=== PATIENT | female | born 1960 | race Caucasian/White ===

== ENCOUNTER 2019-04-23 06:54 | Inpatient (IN) ==
--- NOTE | 2019-03-24 19:43 | PAT Medication Instructions ---
Medication Instructions Date of Service March 24, 2019 Home Medications amitriptyline 50 mg PO HS ascorbic acid (vitamin C) [Vitamin C] 1 g PO DAILY aspirin 81 mg PO HS calcium carbonate-vitamin D3 [Calcium 600 + D(3)] 1 cap PO BID cholecalciferol (vitamin D3) [Vitamin D3] 5,000 unit PO DAILY levothyroxine 50 mcg PO QAM levothyroxine 200 mcg PO QAM multivitamin 1 tab PO DAILY valsartan 320 mg PO QAM ASK your prescriber and surgeon aspirin 81 mg PO HS DO NOT take the morning of surgery ascorbic acid (vitamin C) [Vitamin C] 1 g PO DAILY calcium carbonate-vitamin D3 [Calcium 600 + D(3)] 1 cap PO BID cholecalciferol (vitamin D3) [Vitamin D3] 5,000 unit PO DAILY multivitamin 1 tab PO DAILY valsartan 320 mg PO QAM Take morning of surgery With a small sip of water, OTHERWISE NOTHING TO EAT OR DRINK AFTER MIDNIGHT: levothyroxine 50 mcg PO QAM levothyroxine 200 mcg PO QAM Take evening before surgery amitriptyline 50 mg PO HS calcium carbonate-vitamin D3 [Calcium 600 + D(3)] 1 cap PO BID Other Notes If you have any questions please call us at [phone] or [phone] or [phone] or [phone]
--- NOTE | 2019-03-25 13:29 | Anesthesiology Consultation ---
Date of Service March 25, 2019 Assessment & Plan (1) Encounter for pre-operative examination: - Awaiting review preop testing (labs, EKG, CXR). - Awaiting surgeon-ordered PCP clearance scheduled 04/03 (Dr. Minal Mora). Chart Review Chart Review: Patient seen in Pre Admission Testing Teaching & Discussion Pre-Anesthesia Teaching/Discussion Notes: Instructed NPO after midnight before surgery,except medications with 15 cc of water. Medication instructions provided according to the PAT guidelines. History Surgery Operation Date: 04/23/19 11:40 Proposed Procedures p Left Total Knee Arthroplasty Revision, Tibia Possible Femur - Ulises Pena, Height/Weight Height: 5 ft 6 in Weight: 95.5 kg Allergies Allergy/AdvReac Type Severity Reaction Status Date / Time bacitracin Allergy Intermediate made skin Verified 03/25/19 13:27 [From Neosporin "raw" ([id number])] neomycin Allergy Intermediate made skin Verified 03/25/19 13:27 [From Neosporin "raw" ([id number])] polymyxin B Allergy Intermediate made skin Verified 03/25/19 13:27 [From Neosporin "raw" ([id number])] tramadol Allergy Mild pruritus Verified 03/25/19 13:27 Medications Home Medications Medication Instructions Recorded Confirmed Last Taken amitriptyline 50 mg PO HS 03/19/19 03/19/19 Unknown ascorbic acid (vitamin C) [Vitamin 1 g PO DAILY 03/19/19 03/19/19 Unknown C] aspirin 81 mg PO HS 03/19/19 03/19/19 Unknown calcium carbonate-vitamin D3 1 cap PO BID 03/19/19 03/19/19 Unknown [Calcium 600 + D(3)] cholecalciferol (vitamin D3) 5,000 unit PO DAILY 03/19/19 03/19/19 Unknown [Vitamin D3] levothyroxine 50 mcg PO QAM 03/19/19 03/19/19 Unknown levothyroxine 200 mcg PO QAM 03/19/19 03/19/19 Unknown multivitamin 1 tab PO DAILY 03/19/19 03/19/19 Unknown valsartan 320 mg PO QAM 03/19/19 03/19/19 Unknown Past Medical History Medical History Anxiety Deep vein thrombosis RLE (20+ years ago)= no definitive etiology; ?lovenox injections x 1 weeks- no issues since Hx of migraines Hypertension Hypothyroidism MVP (mitral valve prolapse) Possible- patient states she was remotely told this but denies hx of ECHO's/no murmur noted at PAT visit 03/25 Obesity Osteoarthritis Varicose veins of both lower extremities Exercise / Class Metabolic Activity II 4-5 Yardwork/Stairs/Walk up hill Past Family History Family History Mother Family history of diabetes mellitus Past Surgical History Surgical History Fusion of spine LUMBAR H/O total hysterectomy History of bilateral tubal ligation History of cholecystectomy History of colonoscopy History of dilatation and curettage "SEVERAL" History of surgery UTERINE ABLATION History of total knee replacement RIGHT/LEFT; Right TKA: 05/19/16: SAB x 2 attempts at L3-L4 + PNB at [facility] Hx of gastric bypass 2004 [place] teeth removed Past Anesthesia History No Hx of Anesthesia Complications and No Family Hx of Anesthesia Complications History of PONV No Hx of PONV and No Hx of Motion Sickness Social History Smoking Status: Never smoker Do You Dip or Chew Tobacco: No Hx Alcohol Use: Yes Alcohol type: wine alcohol intake frequency: holidays/special occasions only Hx Substance Use: No substance use type: does not use Review of Systems Patient denies chest pain, shortness of breath, dyspnea on exertion, reflux, cough, wheezing, palpitations. Physical Exam Vital Signs VITALS BP 128/83 P 69 TEMP 98.3 SP02 94%RA RESP 16 PHYSICAL Full neck and c-spine range of motion. Full TMJ range of motion. TMD 3 finger breaths Mallampati Score 2 Dentition: intact, 2 caps upper front Lungs: clear throughout to auscultation Cardiac: regular rate and rhythm, no murmurs noted Spine: normal Carotid arteries: negative bruit Extremities: no edema Testing Stress Test Date: 05/09/16 Type: nuclear No evidence of myocardial ischemia or infarction. LVEF 61%.
--- NOTE | 2019-03-25 14:25 | XRay Report ---
XR chest Pre-admission PA/Lat CLINICAL HISTORY: Preoperative chest COMPARISON STUDY: 04/21/2016 FINDINGS: The cardiac and mediastinal contours are normal. There is no evidence of focal pulmonary co nsolidation. There is no evidence of failure. No pleural effusions are visualized.[ IMPRESSION: No active disease in the chest. Electronically signed by: Javi Kirkland M.D. 03/25/2019 2:23 PM
[2019-03-25 15:09] LABS: Estimated Average Glucose 105 mg/dl; Hemoglobin A1C 5.3 % (4.5-5.6)
[2019-03-25 15:12] LABS: Appearance Urine Clear (Clear); Bilirubin Urine Negative (Negative); Blood Urine Negative (Negative); Color Urine Yellow; Glucose Urine UA Negative (Negative); Ketones Urine Negative (Negative); Leukocyte Esterase Urine Negative (Negative); Nitrite Urine Negative (Negative); Protein Urine Negative (Negative); Specific Gravity Urine 1.017 (1.000-1.030); Urobilinogen Urine Negative (Negative)
[2019-03-25 15:14] LABS: Basophils # (auto) 0.01 K/uL (0-0.2); Basophils % (auto) 0.2 %; Eosinophils # (auto) 0.09 K/uL (0-0.5); Eosinophils % (auto) 1.6 %; Hematocrit (blood only) 36.5 % (37-47); Hemoglobin 12.4 g/dL (12.0-16.0); Immature Granulocytes # (auto) 0.02 K/uL (0.00-0.02); Immature Granulocytes % (auto) 0.3 %; Lymphocytes # (auto) 0.95 K/uL (1.2-3.4); Lymphocytes % (auto) 16.5 %; Mean Corpuscular Hemoglobin 32.3 pg (25-34); Mean Corpuscular Volume 95.1 fL (80-100); Mean Platelet Volume 10.6 fL (7.4-10.4); Monocytes # (auto) 0.45 K/uL (0.11-0.59); Monocytes % (auto) 7.8 %; Neutrophils # (auto) 4.24 K/uL (1.4-6.5); Neutrophils % (auto) 73.6 %; Platelet Count 211 K/uL (130-400); RDW Coefficient of Variation 12.9 % (11.5-14.5); Red Blood Count 3.84 M/uL (4.2-5.4); White Blood Count 5.76 K/uL (4.8-10.8)
[2019-03-25 15:19] LABS: INR 0.9 (0.9-1.1); Partial Thromboplastin Ratio 0.9; Partial Thromboplastin Time 24.6 Seconds (21.0-31.0); Prothrombin Time 9.4 Seconds (9.0-12.0)
[2019-03-25 15:22] LABS: Albumin Level 3.1 gm/dl (3.4-5.0); BUN Creatinine Ratio 20.6 (10-20); Calcium 8.3 mg/dl (8.5-10.1); Creatinine Clr Calc Pharmacy 106.6 ml/min; Est GFR (African American) 112.3; Est GFR (Non-African American) 96.9; Potassium 3.8 mmol/L (3.5-5.1)
--- NOTE | 2019-04-20 22:07 | History & Physical Report ---
Date of Service April 20, 2019 Assessment & Plan (1) Failed total left knee replacement: I have indicated the patient for revision left total knee replacement. The risks, benefits and complications of surgery were explained to the patient which include but not limited to infection, acute blood loss, DVT/PE, injury to nerves, vessels, bone, soft tissue, arthrofibrosis, chronic pain, failure of the prosthesis, knee dislocation, leg length discrepancy, need for additional surgery, cardiac and pulmonary events and . The patient wished to proceed with surgery and informed consent was obtained at this time. We will plan for Xarelto post-operatively for DVT prophylaxis. Upon discharge the patient will be discharged home with home health services. Appropriate clearances by PCP were obtained. 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 The patient has failed outpatient conservative treatments to this point which included NSAIDs, bracing, home exercise/walking program. The patient's pain and limited function have progressed to the point where they severely hinder their activities of daily living and they no longer tolerate exercise programs. They are requesting to proceed with revision total knee replacement surgery. Allergies Allergy/AdvReac Type Severity Reaction Status Date / Time bacitracin Allergy Intermediate made skin Verified 04/23/19 07:33 [From Neosporin "raw" ([id number])] neomycin Allergy Intermediate made skin Verified 04/23/19 07:33 [From Neosporin "raw" ([id number])] polymyxin B Allergy Intermediate made skin Verified 04/23/19 07:33 [From Neosporin "raw" ([id number])] tramadol Allergy Mild pruritus Verified 04/23/19 07:33 Home Medications Home Medications Medication Instructions Recorded Confirmed Type amitriptyline 50 mg PO HS 03/19/19 03/19/19 History ascorbic acid (vitamin C) [Vitamin 1 g PO DAILY 03/19/19 03/19/19 History C] aspirin 81 mg PO HS 03/19/19 03/19/19 History calcium carbonate-vitamin D3 1 cap PO BID 03/19/19 03/19/19 History [Calcium 600 + D(3)] cholecalciferol (vitamin D3) 5,000 unit PO DAILY 03/19/19 03/19/19 History [Vitamin D3] levothyroxine 50 mcg PO QAM 03/19/19 03/19/19 History levothyroxine 200 mcg PO QAM 03/19/19 03/19/19 History multivitamin 1 tab PO DAILY 03/19/19 03/19/19 History valsartan 320 mg PO QAM 03/19/19 03/19/19 History Past Med/Surg History Medical History Anxiety Deep vein thrombosis RLE (20+ years ago)= no definitive etiology; ?lovenox injections x 1 weeks- no issues since Hx of migraines Hypertension Hypothyroidism MVP (mitral valve prolapse) Possible- patient states she was remotely told this but denies hx of ECHO's/no murmur noted at PAT visit 03/25 Obesity Osteoarthritis Varicose veins of both lower extremities Surgical History Fusion of spine LUMBAR H/O total hysterectomy History of bilateral tubal ligation History of cholecystectomy History of colonoscopy History of dilatation and curettage "SEVERAL" History of surgery UTERINE ABLATION History of total knee replacement RIGHT/LEFT; Right TKA: 05/19/16: SAB x 2 attempts at L3-L4 + PNB at [facility] Hx of gastric bypass 2004 [place] teeth removed Family History Mother Family history of diabetes mellitus Social History Preferred Language: Welsh Communication Ability: Effective Yardage Estimator Required: No Beliefs That Will Affect Care: None Current Living Situation: Spouse Other Information That Helps Us Care for You: No Feels Safe at Home: Yes Safety Concerns: Feels Safe At This Time Smoking Status: Never smoker Do You Dip or Chew Tobacco: No ; Second Hand Exposure: No ; Tobacco Cessation Education Requested by Patient: No Hx Alcohol Use: Yes Alcohol type: wine Hx Substance Use: No Review of Systems Review of Systems: All systems reviewed & are unremarkable except as noted in HPI & below Constitutional: as per Subjective / HPI Physical Exam Physical Exam: LLE NVSI +EHL/FHL/TA/GS SILT grossly, +2 DP pulse, compartments soft NT, painful active and passive ROM of the knee, 0-120 degrees of flexion. Constitutional: WD/WN, vitals as above Eyes: PERRL, conjunctivae normal, anicteric sclerae ENMT: external ear and nose normal, oropharynx normal Neck: trachea midline, no thyromegaly Respiratory: normal respiratory effort, lungs clear to auscultation Cardiovascular: RRR, no murmur, no edema Gastrointestinal (Abdomen): normal bowel sounds, soft, nontender, no hepatosplenomegaly Musculoskeletal: no cyanosis or clubbing, extremities motor strength 5/5 Skin: no rashes, warm and dry Neurologic: patellar DTR's 2+ bilat, sensation intact Psychiatric: A+Ox3, euthymic affect Lymphatic: no cervical or axillary lymphadenopathy Results & Data Diagnostic Findings XRs of the left knee demonstrate gross loosening of the tibial component with subsidence. Bone scan + for increased uptake tibial component consistent with loosening.
[~2019-04-23 06:54] MED LIST: ACETAMINOPHEN 500 MG TAB PO SCH; BUPIVACAINE 0.5 % 5 MG/1 ML PF 10ML VIAL ONE; CEFAZOLIN 2000MG 2,000 MG/15 ML SYR IV SCH; CeleBREX 200 MG CAP PO SCH; EPINEPHrine INJ 1 MG/ML AMP ONE; FAMOTIDINE 20 MG TAB PO SCH; GABAPENTIN 600 MG DOSE PO SCH; LR 500ML BOLUS, THEN 15ML/HR IV SCH; ROPIVACAINE 0.5% 5 MG/ML 30 ML VIAL ONE; ROPIVACAINE 0.5% HCL/PF 150 MG, BUPIVACAINE 0.5% MPF 30 ML, EPINEPHrine 30MG/30ML (OR U... INSTIL SCH; dexAMETHasone 4 MG TAB PO SCH
--- NOTE | 2019-04-23 07:33 | History & Physical Bridge Note ---
Date of Service April 23, 2019 History & Physical Bridge Note I have examined the patient, reviewed the History & Physical and in the interval since the performance of the History & Physical I have noted the following changes of clinical significance: no changes noted
[2019-04-23] MEDS ORDERED: PROPOFOL IV EMULSION 10 MG/ML 20 ML VIAL IV ONE ×3 (08:09→11:42)
[2019-04-23] MEDS ORDERED: LIDOCAINE HCL 2% 2 ML VIAL/AMP(20MG/ML) INFIL ONE (08:09)
[2019-04-23] MEDS ORDERED: MIDAZOLAM HCL 1 MG/ML 2ML VIAL ONE ×2 (08:09→09:36)
[2019-04-23] MEDS ORDERED: BACITRACIN INJ 50,000 UNIT VIAL ONE (08:53)
[2019-04-23] MEDS ORDERED: ATROPINE SULFATE 0.1 MG/ML 10ML SYR IV PRN (09:50)
[2019-04-23] MEDS ORDERED: ePHEDrine sulfate 50 MG/ML AMP IV PRN (09:50)
--- NOTE | 2019-04-23 11:30 | Post Operative Brief Note ---
Immediate Post Op Note v1 Date of Surgery April 23, 2019 Pre & Post Diagnosis Operation Date: 04/23/19 09:25 Pre-Op Diagnosis: Unilateral Primary Osteoarthritis, Left Knee Post-Op Diagnosis: Unilateral Primary Osteoarthritis, Left Knee I identified the patient and participated in the time-out.: Yes Procedure Operation Date: 04/23/19 09:25 Actual Procedures p Left Total Knee Arthroplasty Revision, Tibia (Left) - Ulises Pena DO Surgeon Ulises Pena DO Music Video Director Naeem Frost Estimated Blood Loss 100 Findings Consistent with Post-Op Diagnosis Fluids 1200 cc LR Drains Hemovac Drain Anesthesia Type Spinal MAC Complications none Disposition Disposition: Recovery Room Overlapping Procedure I was present for: the critical portions of procedure. I was immediately available: during the entire case. Back up surgeon: was not required during procedure.
--- NOTE | 2019-04-23 11:40 | Operative Report ---
Post Operative Report Pre & Post Diagnosis Operation Date: 04/23/19 09:25 Pre-Op Diagnosis: Unilateral Primary Osteoarthritis, Left Knee Post-Op Diagnosis: Unilateral Primary Osteoarthritis, Left Knee I identified the patient and participated in the time-out.: Yes Procedure Operation Date: 04/23/19 09:25 Actual Procedures p Left Total Knee Arthroplasty Revision, Tibia (Left) - Ulises Pena DO Surgeon Ulises Pena DO Photographic Engineer Naeem Frost Estimated Blood Loss 100 Findings Consistent with Post-Op Diagnosis Specimens none Drains hmv drain deep to fascia Anesthesia Type Spinal MAC Complications none Disposition Disposition: Recovery Room Indications The patient is a 58 year old female who presents with complaints of 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 The patient has failed outpatient conservative treatments to this point which included NSAIDs, bracing, home exercise/walking program. The patient's pain and limited function have progressed to the point where they severely hinder their activities of daily living and they no longer tolerate exercise programs. They are requesting to proceed with revision total knee replacement surgery. I have indicated the patient for revision left total knee replacement. The risks, benefits and complications of surgery were explained to the patient which include but not limited to infection, acute blood loss, DVT/PE, injury to nerves, vessels, bone, soft tissue, arthrofibrosis, chronic pain, failure of the prosthesis, knee dislocation, leg length discrepancy, need for additional surgery, cardiac and pulmonary events and . The patient wished to proceed with surgery and informed consent was obtained at this time. We will plan for Xarelto post-operatively for DVT prophylaxis. Upon discharge the patient will be discharged home with home health services. Appropriate clearances by PCP were obtained. Description of Procedure Following induction of spinal anesthesia, a tourniquet was applied to the proximal aspect of the thigh and the patient's left leg was prepped and draped in the usual sterile manner. A timeout was performed and site denis verified. Limb was exsanguinated with an esmarch bandage and tourniquet was inflated to 300 mmHg. The prior incision was identified and a longitudinal midline incision was made over the anterior knee. Previous surgical scar was excised. Subcutaneous tissue was sharply dissected down to fascia. Electrocautery was used for hemostasis. Next a medial parapatellar arthrotomy was performed. Meticulous removal of hypertrophic synovium and scar tissue was removed with Bovie. The patella was subluxed laterally and the knee was flexed. A medina retractor was used to expose the synovium above on the anterior aspect of the femur and removed down to bone. Next, the anterior fat pad was removed to aid in visualization. The medial face of the tibia was cleared of soft tissue first with a bovie and a mcguire elevator. This tissue was retracted posteriorly using a blunt hohmann. Once adequate access was obtained to the total knee prosthesis we removed the tibial articular surface. Next we turned our attention to the femoral component meticulous removal of scar tissue around the implant was performed. The femoral component was inspected thoroughly and found to be well fixed and without signs of loosening or osteolysis. Next, we gained access to the proximal tibia with two bent Hohmanns placed medial and lateral to aid in visualization. Utilizing the microsagittal saw the tibial component and cement interface was disrupted followed by flexible osteotomes. Utilizing flat wide osteotomes we were able to lever the component out of the bone and remove with a bone tamp and mallet. The tibial component was easily removed and there was minimal bone loss. Next we meticulously removed remaining cement and cleared the proximal tibia of any remaining soft tissue. We gained access to the intramedullary tibia and intramedullary membrane was scraped with curved curettes. Next sequential intramedullary reaming was performed by hand on the tibia until adequate bone chatter was appreciated. Reaming was stopped at 16 mm on the tibia . At this time the tourniquet was dropped at 60 minutes. The intramedullary reamer was left in the tibia and the T-handle was removed. The proximal tibia cutting guide was attached to the intramedullary reamer and pinned into place. Intramedullary reamer was removed and the proximal tibia was cut removing minimal bone until there was a flat cut perpendicular to the mechanical axis. The cutting guide was removed and boss reamer ran over the IM reamer clearing proximal bone. All instruments were removed and confirmed the cut was confirmed with drop patria and spacer block. The IM reamer was reinserted and a size 4 tibia was selected. Offset and position was noted and the tibial plate was pinned into place with appropriate rotation. The IM reamer was removed and preparation of the tibia was completed utilizing the matching tibial drill and broach. The trial tibial plate was removed and the trial size 4 tibia with 4mm offset [id number] fluted stem with 10mm medial and lateral augments were attached and impacted into place. This provided good fit and fill of the proximal tibia. A 14mm TS tibial articular surface was trialed. Sequential trialing of tibial sizes was performed, increasing to a tibial articular surface size of 16mm. Varus-valgus balance was assessed in 0 degrees of extension and 30, 60 and 90 degrees of flexion. A final tibial articular surface size 16mm TS was chosen. Access was gained to the patella and meticulous removal of fibrous soft tissue surrounding the patella button was removed. The patella was cleared of any remaining osteophytes utilzing the rongour. The patella button was found to be stable and well fixed without signs of wear. The knee was found to be well balanced, well aligned, with excellent patellar tracking. The leg was rewrapped with new Esmarch and tourniquet inflated once again at this time. The trials were removed and final components were obtained and assembled on the back table. Aquamantys was utilized for any bleeders and Orthomix solution injected into the posterior capsule. The knee was irrigated with copious amounts of sterile saline solution mixed with bacitracin. Access to the proximal tibia was once again obtained utilizing two bent hohmann retractors and the proximal tibia was dried with lap sponges. The final components were cemented into place utilizing Palacos cement and all excess cement was removed. A trial tibial articular surface was placed while cemented hardened. Knee stability was once again assessed and the final component inserted. The knee was injected with Orthomix solution. Next we performed a betadine soak for 3 minutes followed by repeat irrigation with copious amounts of sterile saline solution mixed with bacitracin. Hemovac drains 2 were inserted deep to the capsule. The capsulotomy was closed with #1 Vicryl follo wed by subcutaneous closure with 2-0 Vicryl suture. Skin closure was performed using odessa and sterile dressings were applied which included Silverlon, drain sponge, webril and colin wrap. The tourniquet was deflated again at 107 minutes of total time. The patient was extubated in the OR and transported to the PACU in stable condition. Due to the complex nature of the procedure, the entire surgery was performed with the operational assistance of Naeem Frost PA-C. The sales assistant, under direct supervision, was involved in the actual performance of all aspects of the surgical procedure including patient positioning, hemostasis, tissue retraction, instrument management and wound closure. I attest to the content of the Intraoperative Record and any orders documented therein. Any exceptions are noted below.
--- NOTE | 2019-04-23 12:18 | Anesthesiology Progress Note ---
Date of Service April 23, 2019 Anesthesia Post Procedure Vital Signs Vital Signs: Temp Pulse Pulse Resp BP Pulse Ox 04/23/19 12:05 78 12 115/67 98 04/23/19 11:56 36.2 C L 86 12 115/68 93 04/23/19 07:46 36.6 C 65 20 143/87 H 96 Transfer of Care Handoff Completed per policy Notes Mental Status: alert / awake / arousable Patient Amnestic to Procedure: Yes Nausea / Vomiting: adequately controlled Pain: adequately controlled Airway Patency, RR, SpO2: stable & adequate BP & HR: stable & adequate Hydration State: stable & adequate Neuraxial Anesthesia: was administered and sensory block is resolving Anesthetic Complications: no major complications apparent
--- NOTE | 2019-04-23 12:27 | XRay Report ---
XR knee LT 1 or 2V routine CLINICAL HISTORY: Surgical Post Op COMPARISON: 05/25/2016 DISCUSSION: There are postsurgical changes of a total left knee arthroplasty revision with a longstem tibial component. There is evidence for patellar resurfacing. There are overlying skin odessa and s urgical drains. The femoral tibial components appear well seated. There is gas in the soft tissues co nsistent with recent surgery. IMPRESSION: Postsurgical changes of a total left knee arthroplasty revision. Electronically signed by: Javi Kirkland M.D. 04/23/2019 12:26 PM
[2019-04-23] MEDS ORDERED: SODIUM CHLORIDE 0.9% 1000ML 1,000 ML IV SCH (12:50)
[2019-04-23] MEDS ORDERED: MAGNESIUM HYDROXIDE SUSP 30 ML UDC PO PRN (12:50)
[2019-04-23] MEDS ORDERED: NALOXONE HCL 0.4 MG/1 ML VIAL/CARP IV PRN (12:50)
[2019-04-23] MEDS ORDERED: BISACODYL 10 MG SUPP PR PRN (12:50)
[2019-04-23] MEDS ORDERED: METOCLOPRAMIDE HCL INJ 5 MG/ML 2 ML VIAL IV PRN (12:50)
[2019-04-23] MEDS ORDERED: HYDROmorphone INJ 0.5 MG/0.5 ML SYR IV PRN (12:50)
[2019-04-23] MEDS ORDERED: ONDANSETRON INJ 2 MG/ML 2 ML VIAL IV PRN (12:50)
--- NOTE | 2019-04-23 18:04 | Orthopedic Progress Note ---
Date of Service April 23, 2019 Assessment & Plan (1) Failed total left knee replacement: Status post revision left total knee arthroplasty, tibia -Ancef x24 -DVT prophylaxis: SCDs, teds, Xarelto -Weight-bear as tolerates left lower extremity -PT /OT -Postoperative x-ray demonstrate a well aligned well fixed orthopedic prosthesis without evidence of fracture or dislocation -Monitor drain output -A.m. labs -DC planning Subjective Post Operative Progress Note Patient seen sitting up in bed, comfortable, denies complaints, pain well controlled, no acute issues. Patient denies fevers, chills, nausea, vomiting, shortness of breath or chest pain. Review of Systems Review of Systems: All systems reviewed & are unremarkable except as noted in HPI & below Constitutional: as per Subjective / HPI Physical Exam Physical Exam: LLE NVSI +EHL/FHL/TA/GS SILT grossly, +2 DP pulse, compartments soft NT, dressing cdi. Constitutional: WD/WN, vitals as above Results & Data Vital Signs (Past 12 Hours) Vital Signs Temp Pulse Pulse Resp BP Pulse Ox 04/23/19 16:09 36.4 C L 66 16 132/80 99 04/23/19 14:58 36.4 C L 67 16 119/79 98 04/23/19 14:31 68 16 119/76 99 04/23/19 13:35 36.8 C 76 18 131/88 99 04/23/19 13:05 69 16 126/85 98 04/23/19 12:35 36.8 C 74 18 128/78 97 04/23/19 12:25 36.6 C 74 12 126/77 98 04/23/19 12:15 78 17 121/72 96 04/23/19 12:05 78 12 115/67 98 04/23/19 11:56 36.2 C L 86 12 115/68 93 04/23/19 07:46 36.6 C 65 20 143/87 H 96
[2019-04-23] MEDS: CEFAZOLIN 2000MG 2,000 MG/15 ML SYR IV SCH (18:18)
[2019-04-23] MEDS: HYDROCODONE/ACETAMOPHEN 5/325MG TAB PO PRN (19:48)
[2019-04-23] MEDS: DOCUSATE SODIUM 100 MG CAP PO SCH (20:52)
[2019-04-23] MEDS ORDERED: SENNA 8.6 MG TAB PO SCH (21:00)
[2019-04-23] MEDS ORDERED: AMITRIPTYLINE HCL 25 MG TAB PO SCH (21:00)
[2019-04-24] MEDS: HYDROCODONE/ACETAMOPHEN 5/325MG TAB PO PRN ×4 (00:02→13:06)
[2019-04-24] MEDS: CEFAZOLIN 2000MG 2,000 MG/15 ML SYR IV SCH (00:02)
[2019-04-24 05:27] LABS: Hematocrit (blood only) 28.2 % (37-47); Hemoglobin 9.8 g/dL (12.0-16.0); Mean Corpuscular Hemoglobin 32.6 pg (25-34); Mean Corpuscular Hgb Conc 34.8 g/dL (32-36); Mean Corpuscular Volume 93.7 fL (80-100); Mean Platelet Volume 10.7 fL (7.4-10.4); Platelet Count 168 K/uL (130-400); RDW Coefficient of Variation 12.1 % (11.5-14.5); RDW Standard Deviation 41.3 fL (36.4-46.3); Red Blood Count 3.01 M/uL (4.2-5.4); White Blood Count 10.72 K/uL (4.8-10.8)
[2019-04-24 05:58] LABS: BUN Creatinine Ratio 18.6 (10-20); Calcium 8.4 mg/dl (8.5-10.1); Creatinine Clr Calc Pharmacy 106.5 ml/min; Est GFR (African American) 112.3; Est GFR (Non-African American) 96.9; Potassium 4.5 mmol/L (3.5-5.1)
[2019-04-24] MEDS ORDERED: LEVOTHYROXINE SODIUM 50 MCG TABLET PO SCH (06:30)
[2019-04-24] MEDS ORDERED: LEVOTHYROXINE SODIUM 200 MCG TABLET PO SCH (06:30)
--- NOTE | 2019-04-24 07:44 | Orthopedic Progress Note ---
Date of Service April 24, 2019 Assessment & Plan (1) Failed total left knee replacement: Status post revision left total knee arthroplasty, tibia POD#1 -Ancef x24 -DVT prophylaxis: SCDs, teds, Xarelto -Weight-bear as tolerates left lower extremity -PT /OT -Postoperative x-ray demonstrate a well aligned well fixed orthopedic prosthesis without evidence of fracture or dislocation -Monitor drain output - 50/560 - DC today -A.m. labs - hgb 9.8 -DC planning Subjective Post Operative Progress Note Patient seen sitting up in bed, comfortable, denies complaints, pain well controlled, no acute issues. Patient denies fevers, chills, nausea, vomiting, shortness of breath or chest pain. Review of Systems Review of Systems: All systems reviewed & are unremarkable except as noted in HPI & below Constitutional: as per Subjective / HPI Physical Exam Physical Exam: LLE NVSI +EHL/FHL/TA/GS SILT grossly, +2 DP pulse, compartments soft NT, dressing cdi. Constitutional: WD/WN, vitals as above Results & Data Vital Signs (Past 12 Hours) Vital Signs Temp Pulse Resp BP Pulse Ox 04/24/19 03:55 36.7 C 60 14 98/63 L 94 04/23/19 23:56 36.7 C 61 15 101/62 92
[2019-04-24] MEDS: DOCUSATE SODIUM 100 MG CAP PO SCH (08:41)
[2019-04-24] MEDS ORDERED: MULTIVITAMIN TAB PO SCH (09:00)
[2019-04-24] MEDS ORDERED: RIVAROXABAN 10 MG TABLET PO SCH (09:00)
[2019-04-24] MEDS ORDERED: VALSARTAN 80 MG TAB PO SCH (09:00)
--- NOTE | 2019-04-25 18:21 | Discharge Summary ---
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 The patient has failed outpatient conservative treatments to this point which included NSAIDs, bracing, home exercise/walking program. The patient's pain and limited function have progressed to the point where they severely hinder their activities of daily living and they no longer tolerate exercise programs. They are requesting to proceed with revision total knee replacement surgery. Principal Diagnosis Revision left total knee replacement Discharge Exam LLE NVSI +EHL/FHL/TA/GS SILT grossly, +2 DP pulse, compartments soft NT, dressing cdi. Constitutional WD/WN, vitals as above Discharge Data Allergies Allergy/AdvReac Type Severity Reaction Status Date / Time bacitracin Allergy Intermediate made skin Verified 04/23/19 07:33 [From Neosporin "raw" ([id number])] neomycin Allergy Intermediate made skin Verified 04/23/19 07:33 [From Neosporin "raw" ([id number])] polymyxin B Allergy Intermediate made skin Verified 04/23/19 07:33 [From Neosporin "raw" ([id number])] tramadol Allergy Mild pruritus Verified 04/23/19 07:33 Consultations 04/23/19 12:50 Consult Case Management - Discharge Planning Routine Procedures Performed Operation Date: 04/23/19 09:25 Actual Procedures p Left Total Knee Arthroplasty Revision, Tibia (Left) - Ulises Pena DO Ordered Studies 04/23/19 05:00 US - OR guided needle placemen Routine Hospital Course (1) Failed total left knee replacement: The patient is a 58 -year-old female who presents with aseptic loosening of left total knee arthroplasty and failed outpatient conservative treatments including NSAIDs, bracing, injections and home walking/exercise program. The patient's symptoms have progressed to the point where it has been difficult to perform even normal activities of daily living. I indicated the patient for a revision left total knee arthroplasty, the risks, benefits and complications of the procedure include but not limited to infection, bleeding, damage to bone, nerves, vessels, surrounding soft tissue, may develop blood clots, loss of function, leg length discrepancy, dislocation, failure of the components, loosening of the components, the need for additional surgery and . The patient wished to proceed with surgery at this time and informed consent was obtained. Hospital Course: On 04/23/19 the patient was taken to the operating room, adequate anesthesia administered and underwent a revision left total knee arthroplasty. The patient tolerated the procedure well and was taken to the PACU in stable condition. Post-operatively the patient was started on a DVT ppx medication and given appropriate IV antibiotics. Consults were placed to physical therapy, occupational therapy and case management. On POD#1, the patient did well overnight and their pain was well controlled. Labs were drawn and the Hgb was 9.8. The patient progressed well with PT. Dressings were changed at this time and the incision was clean, dry and intact. The patients hospital stay was relatively uneventful and they were deemed stable by the orthopedic team and consultants to be discharged home with on 04/24/19. Discharge Instructions: Upon discharge the patient may weight bear as tolerates through their operative extremity. They were instructed to keep the incision clean and dry at all times. The patient may shower but should not submerge the incision, avoid bathing, pools and hot tubes. The patient was given a script for pain medication and should take as instructed. The patient was given a script for DVT ppx Xarelto 10mg daily and should take as directed. The patient was instructed to not drive or travel for long distances until cleared to do so. If the patient develops any symptoms of fevers, chills, nausea, vomiting, increased redness, swelling, pain or drainage from the surgical site, they should notify the office and/or proceed to the nearest emergency room. The patient should follow up in 10-14 days after surgery for their routine post-operative follow-up appointment and should call the office to confirm the date and time. Status post revision left total knee arthroplasty, tibia POD#1 -Ancef x24 -DVT prophylaxis: SCDs, teds, Xarelto -Weight-bear as tolerates left lower extremity -PT /OT -Postoperative x-ray demonstrate a well aligned well fixed orthopedic prosthesis without evidence of fracture or dislocation -Monitor drain output - 50/560 - DC today -A.m. labs - hgb 9.8 -DC planning Total Time Total Time Spent Total Time Spent (In Minutes): 45 minutes Total Time Includes: Examination of the Patient, Discharge Planning, Medication Reconciliation and Communication With Other Providers Discharge Plan Discharge Items Patient Disposition: Home - Self-Care Reason For Visit: Unilateral Primary Osteoarthritis, Left Knee Discharge Diagnosis: Revision left total knee replacement Condition on Discharge: Good Activity: Per Instructions section Lifting: Wait until after follow-up appointment Bathing: Keep incision dry Bathing Comment: No bathing, pools or hot tubs. Sexual Activity: Wait until after follow-up appointment Exercise/Sports: Wait until after follow-up appointment Driving/Machine Use: No driving Weightbearing: Full weightbearing Non-emergency contact: Primary Care Provider and Surgeon Call non-emergency contact if: you have any medication questions, your symptoms worsen, your pain is not controlled, your pain is worsening, your pain is unusual for you, your pain is concerning for you, you have a fever, your temperature is above 101, your temperature is above 101.5, your wound has increased redness, your wound has increased drainage and your wound pain has increased Follow-up/Referrals: Minal Mora PA-C [Primary Care Provider] - Diet: Regular Addtl Attending Provider Instructions: ACTIVITY RECOMMENDATIONS: SELF CARE INSTRUCTIONS AFTER TOTAL KNEE REPLACEMENT A. You may need to continue a physical therapy program after discharge from the hospital. There are several options available to you. Your doctor will assist you in selecting the best one for you. 1. An out-patient facility 2 to 3 times a week for therapy or home therapy. 2. Continue working on all exercises taught to you in the hospital. Your goals should be to increase bending of your knee to 90 degrees and beyond and to fully straighten your knee. B. You may progress at your own pace from walking with a walker or crutches to a cane; then to no assistive devices. C. Make walking a part of your daily routine. Be up as much as comfortable with rest periods throughout the day. Rest with leg elevation is very important. Use the ice wrap frequently for the first 3-4 weeks. D. There are no restrictions on activities. You may ride in a car, shop, part icipate in dry kiln burner and all social activities. E. Wear the long elastic stockings (KENISHA hose) 20 hours a day for 2 weeks after surgery. They can be removed several times a day for laundering and for a bath. F. You may shower, no tub baths until cleared by your doctor. SPECIAL CARE INSTRUCTIONS: VERY IMPORTANT TO READ AND REVIEW A. There are a few signs you need to watch for after you are home. Call [facility] if you notice any of the followin. Increased severe knee pain. Some pain is expected especially when you exercise. 2. Increased swelling in your leg or knee; pain or swelling of the calf muscle in either lower leg. 3. Any fluid drainage from the incision. 4. Shortness of breath or chest pain. B. Please call [facility] at if you have any concerns or questions about your operation or recovery. The doctor or his nurse will return your call promptly. C. You must take antibiotics before dental work, bladder, bowel or other surgery. Your doctor will provide you with a permanent care to carry describing t his precaution. IMPORTANT: * REMEMBER TO TAKE XARELTO 10MG, DAILY FOR 4 WEEKS UNLESS OTHERWISE DIRECTED. THIS IS YOUR BLOOD THINNER. * HIGH RISK PATIENTS MAY BE PRESCRIBED A STRONGER BLOOD THINNER. THIS WILL BE PROVIDED AT DISCHARGE. * CALL IF INCREASED PAIN, REDNESS, DRAINAGE OR FEVER GREATER THAT 101. * WEAR KENISHA HOSE 20 HOURS PER DAY FOR 2 WEEKS. * YOU MAY HAVE A LARGE BAND-AID LIKE DRESSING (SILVERON). THIS WILL REMAIN ON YOUR INCISION FOR 7 DAYS, THEN CAN BE REMOVED. IF INCISION IS LEAKING THROUGH DRESSING, CALL THE OFFICE . FOLLOW UP VISIT: If appointment is not already scheduled: Please call [facility] to make a follow-up appointment for 2 weeks after your surgery at . Pending Studies at Discharge: No Stand-Alone Forms: [facility], Opioid Pain Management, Smoking Cessation Medications and DC Order Prescriptions: New sennosides [Senokot] 8.6 mg Tablet 17.2 mg PO HS PRN (Reason: constipation) Qty: 28 RF: 0 hydrocodone-acetaminophen [[place]] 5-325 mg Tablet 1 tab PO Q6 MDD 6 tabs PRN (Reason: pain) Qty: 30 RF: 0 Xarelto 10 mg Tablet 10 mg PO DAILY Qty: 28 RF: 0 Continued multivitamin Tablet 1 tab PO DAILY RF: 0 ascorbic acid (vitamin C) [Vitamin C] 1,000 mg Tablet 1 g PO DAILY RF: 0 amitriptyline 25 mg Tablet 50 mg PO HS RF: 0 levothyroxine 50 mcg Tablet 50 mcg PO QAM RF: 0 valsartan 320 mg Tablet 320 mg PO QAM RF: 0 levothyroxine 200 mcg Tablet 200 mcg PO QAM RF: 0 Calcium 600 + D(3) 600 mg calcium- 200 unit Capsule 1 cap PO BID RF: 0 cholecalciferol (vitamin D3) [Vitamin D3] 5,000 unit Tablet 5,000 unit PO DAILY RF: 0 Discontinued aspirin 81 mg Tablet,Delayed Release (Dr/Ec) 81 mg PO HS RF: 0 Discharge Orders: Discharge Order (Routine); Ordered 04/24/19 Ordered By: Mayito Covarrubias/Other Patient Handouts: Surgery Prevent DVT After Admission Data Admit Date/Time: 04/23/19 11:34 Attending Provider: Ulises Pena Admit Provider: Ulises Pena Primary Care Provider: Minal Mora Other Interventions: Discharge Summary Assessment (RN) Last Done: 04/24/19 13:45 DC Date/Time DO NOT enter until pt leaves facility: 04/24/19 14:33
== END 2019-04-24 14:33 | disposition home or self-care (01) | DRG 468 ==
LOC: ASU 06:54 → 3E 11:34